=== PATIENT | female | born 1955 | race Caucasian/White ===

== ENCOUNTER 2022-01-22 17:13 | Emergency (ER) | payer BC ==
[2022-01-22] MEDS ORDERED: Sodium Chloride 0.9% 10 ML Syringe FLUSH PRN (18:32)
[2022-01-22] MEDS: Morphine 4 MG/ML VIAL IVPUSH ONE (18:54)
[2022-01-22] MEDS: Ondansetron 4 MG/2 ML SDV IVPUSH ONE (18:54)
== END 2022-01-22 19:25 ==
LOC: CC.ED 17:13
DX: S72.334A Nondisplaced oblique fracture of shaft of right femur, initial encounter for closed fracture (principal); E78.00 Pure hypercholesterolemia, unspecified; Z90.49 Acquired absence of other specified parts of digestive tract; Z79.899 Other long term (current) drug therapy; Z88.6 Allergy status to analgesic agent; X50.1XXA Overexertion from prolonged static or awkward postures, initial encounter
CPT/HCPCS: 73562-RT; 96374; 96375; 99284; 99284-25; J2270; J2405